=== PATIENT | female | born 2000 | race Two or more races ===

== ENCOUNTER 2024-11-12 09:45 | Emergency (ER) | payer MEDICAID, SELFPAY ==
[2024-11-12 09:54] VITALS: BP 135/88; PULSE 55; RESP 16; TEMP 36.4; O2SAT 98; BMI 27.8
--- NOTE | 2024-11-12 10:14 | EDNOTE_ITS ---
<Statement entered by Lexus Hill MD - 11/14/24 15:17> As co-signing physician, I was present and available for consult prn. I concur with the plan and care as documented by the midlevel provider. ED Female Urogenital RME/HPI General Chief complaint: Urogenital-Female Stated complaint: VAGINAL CHECK-UP Time Seen by Provider: 11/12/24 09:51 Arrival date/time: 11/12/24 09:45 This is a 24-year-old female that comes in with complaints of vaginal discharge. Patient states she recently traveled and felt that she went to a public restroom in [place] and thought it was dirty and since then has been having vaginal discharge. Pt also states she has been wearing tight clothes to gym recently. Patient states she tried to use [id number] medications to help with this to treat for possible fungal infection. Patient states it has not helped. Patient denies denies multiple sex partners. Pain during sex. Patient just complains of vaginal irritation and discharge. Limitations: no limitations Related Data Previous Rx's ?Medication ?Instructions ?Recorded cephalexin 500 mg tablet 500 mg PO TID 7 days #21 tab s 11/12/24 fluconazole 150 mg tablet 150 mg PO Q3D 2 doses #2 tab s 11/12/24 ibuprofen 800 mg tablet 800 mg PO Q6H PRN pain #10 t abs 11/12/24 Allergies Allergy/AdvReac Type Severity Reaction Status Date / Time No Known Allergies Allergy Verified 11/12/24 09:49 Review of Systems Review of Systems Systems Reviewed: All systems reviewed, normal except as documented Past Medical History Past Medical History Comments PMH COMMENT: denies ED Exam General Limitations: Present no limitations General appearance: Present alert and in no apparent distress Head Head exam: Present atraumatic Eye Eye exam: Present normal appearance, PERRL and EOMI ENT ENT exam: Present normal exam, normal oropharynx and mucous membranes moist Neck Neck exam: Present normal inspection, full ROM and trachea midline Chest Chest inspection: Present normal inspection and symmetric chest wall rise Respiratory Respiratory exam: Present normal lung sounds bilaterally Cardiovascular Cardiovascular exam: Present regular rate and normal rhythm Abdominal Exam Abdominal exam: Present soft Extremities Exam Extremities exam: Present normal inspection and full ROM Back Exam Back exam: Present normal inspection and full ROM Neurological Exam Neurological exam: Present alert, oriented X3 and CN II-XII intact Psychiatric Psychiatric exam: Present normal affect and normal mood Skin Skin exam: Present warm, dry, intact and normal color Course Quality Measures none Orders Category Date Time Status HCG Qualitative,Urine Stat Lab 11/12/24 10:24 Completed Urinalysis, C/S if Indicated Stat Lab 11/12/24 10:24 Completed Urine Culture Stat Lab 11/12/24 10:45 Received Fluconazole [Diflucan] Med 11/12/24 12:31 Discontinued 150 mg PO X1 ONE Ondansetron Odt [Zofran Odt] Med 11/12/24 12:31 Discontinued 4 mg PO X1 ONE cefTRIAXone [Rocephin] 1,000 mg Med 11/12/24 12:25 Discontinued Lidocaine 1% 20 ml [Xylocaine 1% 20 ML] 2.1 ml IM X1 metroNIDAZOLE [Flagyl] Med 11/12/24 12:31 Discontinued 2,000 mg PO X1 ONE Vital Signs Vital signs: Vital Signs Temperature 97.6 F 11/12/24 09:54 Pulse Rate 55 L 11/12/24 09:54 Respiratory Rate 16 11/12/24 09:54 Blood Pressure 135/88 H 11/12/24 09:54 Pulse Oximetry (%) 98 11/12/24 09:54 Oxygen Delivery Method Room Air 11/12/24 09:54 Urogenital - Female MDM Narrative MDM Narrative:: Spoke to patient at length. Patient does have urinary tract infection. Will send for urine culture. Patient complaining of white-yellowish discharge patient denies any pelvic pain or pain with sex. Patient denies multiple sex partners. Pt states it feels itchy and iririated. Patient denies recent STI. I told patient we can do a pelvic exam today and culture her. Patient states she has an appointment set up already for November 17, 2024. Patient chose not to do a pelvic exam at this time. I will check patient's UTI. Because of vaginal discharge I will give patient a dose of Flagyl 2 g for 1 dose. I will treat patient with Keflex for infection and I will treat patient with Diflucan for likely yeast infection. I spoke to patient at length that if symptoms change or worsen to come back to the emergency room. I told patient no sex no tight clothing no tampons until she has her pelvic exam scheduled next week. I also advised patient not to drink any alcohol. Patient verbalizes understanding and is comfortable with plan of care. Patient data External records reviewed:: [facility] previous records Clinical information provided by:: patient Social determinants that could affect healthcare access:: none Patient has the following chronic illnesses:: none How is presenting disease/condition affected by chronic disease/condition?: no chronic disease Evaluation data The following diagnostics were reviewed and interpreted by me:: lab results Lab and/or radiology exams considered but not ordered:: gc chlamydia, hiv, hepatitis Interpretation Summary: none Medications / Prescriptions Medications or Prescriptions considered but not ordered:: doxycycline Medication administrations:: Medication Administration History Discontinued Medications Ceftriaxone Sodium 1,000 mg/ (Lidocaine HCl 2.1 ml) 0 mg IM X1 ONE Stop: 11/12/24 12:26 Last Admin: 11/12/24 12:46 Dose: 1,000 mg Documented By: SIVA Fluconazole (Fluconazole 150 Mg Tablet) 150 mg PO X1 ONE Stop: 11/12/24 12:32 Last Admin: 11/12/24 12:42 Dose: 150 mg Documented By: SIVA Metronidazole (Metronidazole 250 Mg Tablet) 2,000 mg PO X1 ONE Stop: 11/12/24 12:32 Last Admin: 11/12/24 12:40 Dose: 2,000 mg Documented By: SIVA Ondansetron HCl (Ondansetron Odt 4 Mg Tabrap) 4 mg PO X1 ONE; Protocol Stop: 11/12/24 12:32 Last Admin: 11/12/24 12:44 Dose: 4 mg Documented By: SIVA see note Consultations Consultation(s) initiated? (list below): No Diagnosis Urogenital Female Differential Diagnosis: urinary tract infection, bacterial vaginosis, trichomoniasis, cystitis and other (yeast infection, sti ) Most likely diagnosis given after review of the tests above:: yeast infection/uti Admission Indicated Admission indicated?: not indicated Admission Request Was there a request for admission?: No Disposition Plan Disposition Plan: Discharge Discharge Attestation Discharge Attestation: The patient and all family members were given an opportunity to ask questions and understood the discharge instructions. Discharge instructions specifically effects, indications for sooner follow up or return to the emergency department, and the expected course of current diagnosis. Patient condition: Stable Discharge Plan Plan Patient Disposition: HOME (Self Care) Patient condition on transfer: Stable Prescriptions/Referrals Prescriptions/Med Rec: New fluconazole 150 mg tablet 150 mg PO Q3D Qty: 2 0RF Rx Instructions: may repeat second dose 72 hrs after first dose if symptoms persist ibuprofen 800 mg tablet 800 mg PO Q6H PRN (Reason: pain) Qty: 10 0RF cephalexin 500 mg tablet 500 mg PO TID 7 Days Qty: 21 0RF Referrals: No Primary/Family,Physician [Primary Care Provider] - In 1 week Problem List Clinical Impression: Urinary tract infection, Candidiasis of vagina Patient/Caregiver Discharge Instructions Discharge Activity: activity as tolerated Education Materials: ED Hematuria, ED CYSTITIS Female Adult, ED ADELINA VAGINITIS Additional Instructions: Follow up with primary provider in 1-2 days. Come back to ED if symptoms change or worsen Print Language: Turkmen Stand Alone Forms: Nella Award Info., Patient Portal Info Letter PA/MOVIE SHOT CAMERAMAN Supervising Physician PA/[employer]IE [employer] CAMERAMAN Supervising Physician: [email or web address]
[2024-11-12 10:47] LABS: Collection Type, Urine Voided
[2024-11-12 10:57] LABS: Bacteria,Urine 1+; Bilirubin,Urine Negative (Negative); Blood,Urine Trace (Negative); Clarity,Urine Turbid (Clear/Hazy); Color,Urine Lt-Yellow (Lt Yel-Yel); Culture Indicated,Urine Contaminated; Glucose, Urine Negative (Negative); Hyaline Casts,Urine < 1 /hpf (0-1); Ketones,Urine Negative (Negative); Leukocyte Esterase,Urine Positive (Negative); Nitrite,Urine Negative (Negative); PH,Urine 7.5 (5.0-7.0); Protein,Urine Negative (Neg - Trace); RBC,Urine 8 /hpf (0-3); Specific Gravity,Urine 1.009 (1.001-1.035); Squamous Epithelial Cell,Urine 58 /hpf (0-5); Urobilinogen,Urine Negative mg/dL (0.0-1.0); WBC,Urine 54 /hpf (0-5)
[2024-11-12 11:28] LABS: HCG Qualitative,Urine Negative
[2024-11-12] MEDS: metroNIDAZOLE 250 MG TABLET 2000 MG PO (12:40)
[2024-11-12] MEDS: FLUCONAZOLE 150 MG TABLET PO (12:42)
[2024-11-12] MEDS: ONDANSETRON ODT 4 MG TABRAP PO (12:44)
[2024-11-12] MEDS: cefTRIAXone 1,000 MG, LIDOCAINE 1% 20 ML 2.1 ML IM (12:46)
== END 2024-11-12 13:12 | disposition home or self-care (01) ==
PROVIDERS: Nurse Practitioner Family; Emergency Provider Emergency Medicine
DX: B37.31 Acute candidiasis of vulva and vagina (principal); N39.0 Urinary tract infection, site not specified
CPT/HCPCS: 81001; 81025; 87086; 96372; 99283; J0696; J3490; Q0162; A9270